=== PATIENT | female | born 1940 | race Caucasian/White ===

== ENCOUNTER 2017-04-08 08:49 | Day surgery (SDC) | payer MEDICARE, BC ==
[2017-04-08] MEDS ORDERED: PROPOFOL 500 MG/50 ML EMU IV ONE (09:39)
[2017-04-08 11:23] VITALS: TEMP 96.8
[2017-04-08 11:39] VITALS: RESP 20; O2SAT 100
[2017-04-08 11:49] VITALS: BP 129/77; PULSE 54
== END 2017-04-08 12:04 | disposition home or self-care (01) | DRG 951 ==
LOC: SURG 08:49
PROVIDERS: ATTEND Internal Medicine Gastroenterology
DX: Z12.11 Encounter for screening for malignant neoplasm of colon (principal); Q39.8 Other congenital malformations of esophagus; D12.4 Benign neoplasm of descending colon; R10.13 Epigastric pain; K64.4 Residual hemorrhoidal skin tags; Z86.010 Personal history of colon polyps; K64.8 Other hemorrhoids; R07.89 Other chest pain; K44.9 Diaphragmatic hernia without obstruction or gangrene
CPT/HCPCS: J2001; J2704

== ENCOUNTER 2018-03-10 08:44 | Day surgery (SDC) | payer MEDICARE, BC ==
[~2018-03-10 08:44] MED LIST: LIDOCAINE HCL 1% MPF SOL ONE; PROPOFOL 500 MG/50 ML EMU IV ONE
[2018-03-10 10:43] VITALS: TEMP 97.5
[2018-03-10 11:20] VITALS: BP 153/74; PULSE 67; RESP 20; O2SAT 99
== END 2018-03-10 11:28 | disposition home or self-care (01) | DRG 382 ==
LOC: SURG 08:44
PROVIDERS: ATTEND Internal Medicine Gastroenterology
DX: K22.70 Barrett's esophagus without dysplasia (principal); K22.2 Esophageal obstruction; K21.9 Gastro-esophageal reflux disease without esophagitis; K44.9 Diaphragmatic hernia without obstruction or gangrene; K29.60 Other gastritis without bleeding
CPT/HCPCS: J2001; J2704